=== PATIENT | male | born 1980 | race Two or more races ===

== ENCOUNTER 2016-05-12 12:23 | Emergency (ER) | payer SELFPAY ==
[~2016-05-12] VITALS: Ht 165.1 cm; Wt 79.4 kg
[2016-05-12] MEDS ORDERED: PROM25TA10 PO (13:10)
[2016-05-12] MEDS ORDERED: CLON0.1T PO (13:10)
--- NOTE | 2016-05-12 13:10 | PHYS DOC ---
Past Medical History Past Medical History: No Pertinent History Past Surgical History: Other Additional Past Surgical Histo: RIGHT FOOT, RIGHT HAND Alcohol Use: None Drug Use: Heroin, Opiates Adult General Chief Complaint Chief Complaint: SUBSTANCE ABUSE HPI HPI Patient is a 36 year old male who presents with agitation, restlessness, and nausea since quitting narcotics 2 days ago. States he has had few episodes of emesis during this time. States he quit heroin and opiate is 2 days ago and he is seeking help with withdrawal and abstinence. He denies chest pain, dyspnea, fever or chills, suicidal ideation, homicidal ideation, hallucinations. Review of Systems Review of Systems Constitutional: Denies fever [] Eyes: Denies change in visual acuity, redness, or eye pain [] HENT: Denies nasal congestion or sore throat [] Respiratory: Denies cough or shortness of breath [] Cardiovascular: No additional information not addressed in HPI [] GI: Denies bloody stools or diarrhea [] : Denies dysuria or hematuria [] Musculoskeletal: Denies back pain or joint pain [] Integument: Denies rash or skin lesions [] Neurologic: Denies headache, focal weakness or sensory changes [] Endocrine: Denies polyuria or polydipsia [] Current Medications Current Medications Current Medications Medications (Trade) Dose Ordered Sig/Sofie Start Time Stop Time Status Last Admin Dose Admin Clonidine HCl (Catapres) 0.1 mg 1X ONCE 05/12/16 13:15 05/12/16 13:16 Allergies Allergies Allergies Coded Allergies Type Severity Reaction Last Updated Verified No Known Drug Allergies 08/19/14 No Physical Exam Physical Exam Constitutional: Well developed, well nourished, no acute distress, non-toxic appearance. [] HENT: Normocephalic, atraumatic, bilateral external ears normal, oropharynx moist, nose normal. [] Eyes: PERRLA, EOMI. [] Neck: Normal range of motion, supple. [] Cardiovascular:Heart rate regular rhythm [] Lungs & Thorax: Bilateral breath sounds clear to auscultation [] Abdomen: Bowel sounds normal, soft, no tenderness. [] Skin: Warm, dry, no erythema, no rash. [] Back: No tenderness, no CVA tenderness. [] Extremities: ROM intact, no edema. [] Neurologic: Alert and oriented X 3, normal motor function, normal sensory function, no focal deficits noted. [] Psychologic: Affect normal, judgement normal, mood normal. [] Current Patient Data Vital Signs Vital Signs Date Time Temp Pulse Resp B/P Pulse Ox O2 Delivery O2 Flow Rate FiO2 05/12/16 12:52 98.4 83 18 139/84 99 Room Air 98.4 Course & Med Decision Making Course & Med Decision Making Pertinent Labs and Imaging studies reviewed. (See chart for details) Appears well on exam. Will treat symptoms with clonidine and promethazine. Encouraged drug cessation and follow up with outpatient therapy. Resources given. He understood and agrees with plan. Dragon Disclaimer Dragon Disclaimer This electronic medical record was generated, in whole or in part, using a voice recognition dictation system. Departure Departure Impression: Primary Impression: Narcotic withdrawal Disposition: HOME, SELF-CARE Condition: STABLE Referrals: NO PCP (PCP) Patient Instructions: Alcohol and Drug Addiction, Finding Treatment, Narcotic Withdrawal-Brief Additional Instructions: Take clonidine to help control withdrawal symptoms. Take promethazine as needed for nausea. Follow up with your primary care doctor and a substance abuse facility. Return for any concerns. Scripts Promethazine Hcl 25 Mg Tablet1 Tab PO PRN Q6HRS PRN NAUSEA #10 TAB Prov:Uma GENTILE MD 05/12/16 Clonidine Hcl 0.1 Mg Tablet0.1 Mg PO BID #5 TAB Prov:Uma GENTILE MD 05/12/16 Uma GENTILE MD May 12, 2016 13:10
[2016-05-12] MEDS ORDERED: CLONIDINE HCL 0.1 MG TABLET PO ONE (13:15)
[2016-05-12 13:20] VITALS: BP 139/84
== END 2016-05-12 13:24 | disposition home or self-care (01) ==
LOC: ER 12:23
DX: F11.23 Opioid dependence with withdrawal (principal); R45.1 Restlessness and agitation; R11.2 Nausea with vomiting, unspecified
CPT/HCPCS: 99283

== ENCOUNTER → 2018-08-01 | Outpatient (CLI) | payer OTHER ==
[~2018-08-01] MED LIST: CLON0.1T PO; PROM25TA10 PO
--- NOTE | 2018-08-01 13:46 | KCIC ---
EXAM: Chest, single view. HISTORY: Positive tuberculin skin test. COMPARISON: None. FINDINGS: A frontal view of the chest obtained. There is no infiltrate, pleural effusion or pneumothorax. The heart is normal in size. IMPRESSION: No acute pulmonary finding or evidence of pulmonary tuberculosis. Electronically signed by: Aleisha Muniz MD (08/01/2018 1:43 PM) [facility]
== END | disposition home or self-care (01) ==
LOC: KCIC 10:05
PROVIDERS: ATTEND Family Medicine
DX: R76.11 Nonspecific reaction to tuberculin skin test without active tuberculosis (principal); F17.200 Nicotine dependence, unspecified, uncomplicated
CPT/HCPCS: 71045